=== PATIENT | male | born 1980 | race Caucasian/White ===

== ENCOUNTER 2022-04-30 11:27 | Outpatient (CLI) | payer OTHER, SELFPAY ==
[2022-04-30 21:40] LABS: Chloride* 101 mmol/L (96-114)
[2022-04-30 21:41] LABS: Potassium* 4.4 mmol/L (3.6-5.1); Sodium* 141 mmol/L (135-149)
[2022-04-30 21:43] LABS: Cholesterol* 192 mg/dL (90-199)
[2022-04-30 21:44] LABS: Blood Urea Nitrogen* 16 mg/dL (5-24); Carbon Dioxide* 30 mmol/L (20-32); Creatinine* 0.9 mg/dL (0.5-1.5); Estimated Glomerular Filt Rate 109 ml/min; Glucose* 85 mg/dL (60-115); Triglycerides* 340 mg/dL (40-149)
[2022-04-30 21:45] LABS: Calcium* 9.1 mg/dL (8.4-10.6); HDL Cholesterol* 41 mg/dL (>=40); LDL Cholesterol Calculated 83 mg/dL (<100)
== END 2022-04-30 11:28 | disposition home or self-care (01) ==
LOC: LKVREF 17:17
PROVIDERS: PCP Emergency Medicine; Visit Provider Emergency Medicine
DX: Z00.00 Encounter for general adult medical examination without abnormal findings (principal); E03.9 Hypothyroidism, unspecified; Z13.6 Encounter for screening for cardiovascular disorders
CPT/HCPCS: 80048; 80061; 84443

== ENCOUNTER 2022-05-01 12:28 | Outpatient (CLI) | payer OTHER, SELFPAY ==
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
== END 2022-05-01 12:29 | disposition home or self-care (01) ==
LOC: CT 12:30
PROVIDERS: PCP Emergency Medicine; Visit Provider Emergency Medicine
DX: T14.8XXA Other injury of unspecified body region, initial encounter (principal); J90 Pleural effusion, not elsewhere classified; S20.219A Contusion of unspecified front wall of thorax, initial encounter
CPT/HCPCS: 74176

== ENCOUNTER 2023-06-10 17:46 | Outpatient (CLI) | payer OTHER, SELFPAY | END 2023-06-10 17:47 | disposition home or self-care (01) | LOC: NFLDREF 06-11 12:24 | PROVIDERS: PCP Emergency Medicine; Referring Provider Emergency Medicine; Visit Provider Emergency Medicine | DX: Z00.00 Encounter for general adult medical examination without abnormal findings (principal); E03.9 Hypothyroidism, unspecified; E78.1 Pure hyperglyceridemia; G47.00 Insomnia, unspecified; F41.9 Anxiety disorder, unspecified; F32.A Depression, unspecified; B35.6 Tinea cruris; L30.9 Dermatitis, unspecified; R21 Rash and other nonspecific skin eruption | CPT/HCPCS: 80048; 80061; 84443 ==

== ENCOUNTER 2023-09-08 16:14 | Outpatient (CLI) | payer OTHER, SELFPAY | END 2023-09-08 16:15 | disposition home or self-care (01) | LOC: NFLDREF 09-09 18:16 | PROVIDERS: PCP Emergency Medicine; Referring Provider Emergency Medicine; Visit Provider Emergency Medicine | DX: E03.9 Hypothyroidism, unspecified (principal) | CPT/HCPCS: 84443 ==

== ENCOUNTER 2024-09-28 17:54 | Outpatient (CLI) | payer OTHER, SELFPAY | END 2024-09-28 17:55 | disposition home or self-care (01) | PROVIDERS: PCP Emergency Medicine; Visit Provider Nurse Practitioner Family | DX: E03.9 Hypothyroidism, unspecified (principal); E78.1 Pure hyperglyceridemia | CPT/HCPCS: 80053; 84443; 85025 ==